=== PATIENT | female | born 1965 | race Caucasian/White ===

== ENCOUNTER → 2018-04-18 | Outpatient (CLI) | payer BC, OTHER ==
[~2018-04-18] MED LIST: HYDR-3250 PO
--- NOTE | 2018-04-21 16:56 | RADIOLOGY IMAGING REPORT ---
FACILITY: [facility] PATIENT NAME: KAREY COYNE : [id number] MR: [id number] V: [id number] EXAM DATE: [id number] ORDERING PHYSICIAN: VIPUL BUTTERFIELD TECHNOLOGIST: Zaynab Fleming PROCEDURE:BILATERAL DIGITAL SCREENING MAMMOGRAM WITH CAD ASSISTED INTERPRETATION & 3D TOMOSYNTHESIS COMPARISON:Prior mammograms 12/24/16 back to 07/30/11. INDICATIONS:SCREENING FINDINGS: The breast parenchyma consists of scattered fibroglandular tissue. There are no dominant masses or recent microcalcifications. DIAGNOSTIC CATEGORY 1--NEGATIVE. RECOMMENDATIONS: ROUTINE MAMMOGRAM AND CLINICAL EVALUATION. IMPRESSION: BIRADS 1: Negative. Routine annual mammographic screening . Dictated by: Fam Ash M.D. on 04/21/2018 at 10:16 Transcribed by: KEVIN on 04/21/2018 at 10:36 Approved by: Fam Ash M.D. on 04/21/2018 at 16:55 [facility]
== END ==
LOC: MAMO 04-03 00:25
PROVIDERS: ATTEND Obstetrics & Gynecology
DX: Z12.31 Encounter for screening mammogram for malignant neoplasm of breast (principal)
CPT/HCPCS: 77063; 77067